=== PATIENT | female | born 1985 | race Caucasian/White ===

== ENCOUNTER 2016-04-07 08:25 | Emergency (ER) | payer BC ==
[2016-04-07 08:59] VITALS: BP 112/71
--- NOTE | 2016-04-07 09:08 | UC ---
Complaint Female HPI - HPI Summary HPI Summary: complaint of burning with urination increased urgency and frequency of urination for 2 days slight suprapubic pain when urination strong odor to urine denies fever and back pain took some Azo yesterday hx of UTI 1 .5 months ago- never completed course of keflex for infection - History Of Current Complaint Chief Complaint: UCGU Stated Complaint: URINARY ISSUE Time Seen by Provider: 04/07/16 09:00 Hx Obtained From: Patient Hx Last Menstrual Period: IUD - Allergies/Home Medications Allergies/Adverse Reactions: Allergies Allergy/AdvReac Type Severity Reaction Status Date / Time No Known Allergies Allergy Verified 04/07/16 08:57 PMH/Surg Hx/FS Hx/Imm Hx Previously Healthy: Yes Endocrine History Of: Denies: Diabetes, Thyroid Disease Cardiovascular History Of: Denies: Cardiac Disorders, Hypertension Respiratory History Of: Denies: COPD, Asthma GI/ History Of: Reports: Gastroesophageal Reflux Denies: Ulcer - Surgical History Surgical History: Yes Surgery Procedure, Year, and Place: cholecystectomy 2009 - Family History Known Family History: Negative: Cardiac Disease, Hypertension, Diabetes, Renal Disease - Social History Occupation: Employed Full-time Lives: With Family Alcohol Use: Occasionally Substance Use Type: None Smoking Status (MU): Light Every Day Tobacco Smoker Amount Used/How Often: 1/2ppd Cessation Counseling: Patient Advised to Stop Review of Systems Constitutional: Negative Skin: Negative Eyes: Negative ENT: Negative Respiratory: Negative Cardiovascular: Negative Gastrointestinal: Negative Genitourinary: Dysuria, Frequency, Urgency Motor: Negative Neurovascular: Negative Musculoskeletal: Negative Neurological: Negative Psychological: Negative All Other Systems Reviewed And Are Negative: Yes Physical Exam Triage Information Reviewed: Yes Appearance: No Pain Distress, Well-Nourished Vital Signs: Initial Vital Signs Temp 98.6 F 04/07/16 08:52 Pulse 71 04/07/16 08:52 Resp 28 04/07/16 08:52 BP 112/71 04/07/16 08:52 Pulse Ox 100 04/07/16 08:52 Vital Signs Reviewed: Yes Eyes: Positive: Conjunctiva Clear ENT: Positive: Normal ENT inspection Neck: Positive: No Lymphadenopathy Respiratory: Positive: Lungs clear, Normal breath sounds, No respiratory distress Cardiovascular: Positive: RRR, No Murmur, Pulses Normal Abdomen Description: Positive: Nontender, No Organomegaly, Soft. Negative: CVA Tenderness (R), CVA Tenderness (L), Distended, Guarding Bowel Sounds: Positive: Present Musculoskeletal: Positive: No Edema Neurological: Positive: Alert Psychological Exam: Normal Skin Exam: Normal Complaint Female Dx - Course Course Of Treatment: exam completed. will treat for UTi with bactrim -last UTI treated with kelfex. followup with PCP - Differential Dx/Diagnosis Differential Diagnosis/HQI/PQRI: Urinary Tract Infection Provider Diagnoses: UTI Discharge - Discharge Plan Condition: Stable Disposition: HOME Prescriptions: Phenazopyridine TAB* [Pyridium TAB*] 100 mg PO TID #6 tab Sulfamethox/Trimethoprim DS* [Bactrim DS 800/160 TAB*] 1 tab PO BID #14 tab Patient Education Materials: Urinary Tract Infection in Women (ED) Referrals: Betty Mejia NP [Primary Care Provider] - Additional Instructions: Please take antibiotic as directed. Increase fluids and rest Take acetaminophen or ibuprofen for fever or pain Please review your discharge instructions. If your symptoms do not improve please call your primary care provider or return to urgent care.
== END 2016-04-07 09:25 | disposition home or self-care (01) ==
LOC: UCEAST 08:25
DX: N39.0 Urinary tract infection, site not specified (principal); F17.210 Nicotine dependence, cigarettes, uncomplicated
CPT/HCPCS: 81002; 87077; 87086; 87186; 99212; G0463

== ENCOUNTER 2017-09-05 09:43 | Emergency (ER) | payer BC ==
[2017-09-05 10:41] VITALS: BP 119/73
--- NOTE | 2017-09-05 10:59 | UC ---
Complaint Female HPI - HPI Summary HPI Summary: Pain and burning with urination - History Of Current Complaint Chief Complaint: UCGU Stated Complaint: URINARY COMPLAINT Time Seen by Provider: 09/05/17 10:35 Hx Obtained From: Patient Hx Last Menstrual Period: IUD ?: No Onset/Duration: Sudden Onset, Lasting Days - 1, Still Present Timing: Constant Pain Intensity: 3 Pain Scale Used: 0-10 Numeric Character: Burning Aggravating Factor(s): Urination Alleviating Factor(s): Nothing - Allergies/Home Medications Allergies/Adverse Reactions: Allergies Allergy/AdvReac Type Severity Reaction Status Date / Time sulfamethoxazole Allergy Rash Verified 09/05/17 10:41 [From Bactrim] trimethoprim [From Bactrim] Allergy Rash Verified 09/05/17 10:41 Home Medications: Home Medications Pumpkin Seed Extract/Soy Germ [Azo Bladder Control Capsule] 1 cap PO 09/05/17 [ History] PMH/Surg Hx/FS Hx/Imm Hx Previously Healthy: Yes - Surgical History Surgical History: Yes Surgery Procedure, Year, and Place: cholecystectomy 2009 - Family History Known Family History: Negative: Cardiac Disease, Hypertension, Diabetes, Renal Disease - Social History Occupation: Employed Full-time Lives: With Family Alcohol Use: Occasionally Substance Use Type: None Smoking Status (MU): Former Smoker Amount Used/How Often: 1/2ppd Review of Systems Constitutional: Negative Skin: Negative Eyes: Negative ENT: Negative Respiratory: Negative Cardiovascular: Negative Gastrointestinal: Negative Genitourinary: Dysuria, Frequency, Urgency Motor: Negative Neurovascular: Negative Musculoskeletal: Negative Neurological: Negative Psychological: Negative Is Patient Immunocompromised?: No All Other Systems Reviewed And Are Negative: Yes Physical Exam Triage Information Reviewed: Yes Appearance: Well-Appearing, No Pain Distress, Well-Nourished Vital Signs: Initial Vital Signs Temp 97.8 F 09/05/17 10:38 Pulse 101 09/05/17 10:38 Resp 18 09/05/17 10:38 BP 119/73 09/05/17 10:38 Pulse Ox 98 09/05/17 10:38 Vital Signs Reviewed: Yes Eye Exam: Normal Eyes: Positive: Conjunctiva Clear ENT Exam: Normal ENT: Positive: Normal ENT inspection, Hearing grossly normal. Negative: Trismus , Muffled voice, Hoarse voice Dental Exam: Normal Neck exam: Normal Neck: Positive: Supple, Nontender Respiratory Exam: Normal Respiratory: Positive: Chest non-tender, No respiratory distress, No accessory muscle use Cardiovascular Exam: Normal Cardiovascular: Positive: RRR, Pulses Normal, Brisk Capillary Refill Abdominal Exam: Normal Abdomen Description: Positive: Nontender, No Organomegaly, Soft. Negative: CVA Tenderness (R), CVA Tenderness (L), McBurney's Point Tenderness Bowel Sounds: Positive: Present Musculoskeletal Exam: Normal Musculoskeletal: Positive: Strength Intact, ROM Intact, No Edema Neurological Exam: Normal Neurological: Positive: Alert, Muscle Tone Normal Psychological Exam: Normal Skin Exam: Normal Diagnostics - Laboratory Diagnostic Studies Completed/Ordered: ua +3 blood and leukoesterace Complaint Female Dx - Course Course Of Treatment: increase fluids, tylenol, ibuprofen, AZO, macrobid, culture urine follow with pcp prn - Differential Dx/Diagnosis Provider Diagnoses: UTI Discharge - Sign-Out/Discharge Documenting (check all that apply): Discharge/Admit/Transfer - Discharge Plan Condition: Stable Disposition: HOME Prescriptions: Nitrofurantoin Monohyd/M-Cryst [Macrobid 100 mg Capsule] 100 mg PO BID #10 cap Phenazopyridine TAB* [Pyridium 100 mg TAB*] 100 mg PO TID PRN #9 tab PRN Reason: urinary pain/burning Patient Education Materials: Phenazopyridine (By mouth), Urinary Tract Infection in Women (ED) Referrals: Betty Mejia NP [Primary Care Provider] - If Needed - Billing Disposition and Condition Condition: STABLE Disposition: HOME
== END 2017-09-05 11:09 | disposition home or self-care (01) ==
LOC: UCEAST 09:43
DX: N39.0 Urinary tract infection, site not specified (principal); Z88.2 Allergy status to sulfonamides; Z90.49 Acquired absence of other specified parts of digestive tract; Z87.891 Personal history of nicotine dependence
CPT/HCPCS: 81003; 84702; 87077; 87086; 87186; 99212; G0463

== ENCOUNTER 2017-10-17 13:13 | Emergency (ER) | payer BC ==
[2017-10-17] MEDS ORDERED: Naproxen TAB* 250 MG PO ONE (13:56)
[2017-10-17] MEDS ORDERED: Nitrofurantoin Macrocrystals* 100 MG CAP PO ONE (13:56)
--- NOTE | 2017-10-17 13:56 | ED ---
GI/ HPI - HPI Summary HPI Summary: This patient is a 32 year old F who was already in [facility] with her when she noticed she had bloody urine. Pt reports that she had a UTI three weeks ago but didnt finish the antibiotics. The patient rates the pain 4/10 in severity. Patient reports hematuria. Patient denies back pain. No SHx of smoking. 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 - History of Current Complaint Chief Complaint: EDUrogenitalProblems Time Seen by Provider: 10/17/17 13:35 Stated Complaint: POSS UTI Hx Obtained From: Patient Hx Last Menstrual Period: IUD Onset/Duration: Started Hours Ago Timing: Constant Severity: Moderate Current Severity: Moderate Vaginal Bleeding Description: Brownish-Red Pain Intensity: 4 Location of Pain: Groin Associated Signs and Symptoms: Positive: Hematuria, Dysuria. Negative: Back Pain - Allergy/Home Medications Allergies/Adverse Reactions: Allergies Allergy/AdvReac Type Severity Reaction Status Date / Time sulfamethoxazole Allergy Rash Verified 10/17/17 13:21 [From Bactrim] trimethoprim [From Bactrim] Allergy Rash Verified 10/17/17 13:21 PMH/Surg Hx/FS Hx/Imm Hx Endocrine/Hematology History: Denies: Hx Diabetes, Hx Thyroid Disease Cardiovascular History: Denies: Hx Hypertension Respiratory History: Denies: Hx Asthma, Hx Chronic Obstructive Pulmonary Disease (COPD) GI History: Denies: Hx Ulcer EENT History: Denies: Hx Deafness - Surgical History Surgery Procedure, Year, and Place: cholecystectomy 2009 Infectious Disease History: No Infectious Disease History: Denies: Hx Clostridium Difficile, Hx Hepatitis, Hx Human Immunodeficiency Virus (HIV), Hx of Known/Suspected MRSA, Hx Shingles, Hx Tuberculosis, Hx Known/ Suspected VRE, Hx Known/Suspected VRSA, History Other Infectious Disease, Traveled Outside the [place] in Last 30 Days - Family History Known Family History: Negative: Cardiac Disease, Hypertension, Diabetes, Renal Disease - Social History Alcohol Use: Occasionally Substance Use Type: Reports: None Smoking Status (MU): Former Smoker Amount Used/How Often: 1/2ppd Review of Systems Positive: dysuria, hematuria Negative: Other - back pain All Other Systems Reviewed And Are Negative: Yes Physical Exam - Summary Physical Exam Summary: Appearance: Well appearing, no pain distress Skin: warm, dry, reflects adequate perfusion Head/face: normal Eyes: EOMI, MAIKEL ENT: normal Neck: supple, non-tender Respiratory: CTA, breath sounds present Cardiovascular: RRR, pulses symmetrical Abdomen: non-tender, soft Bowel Sounds: present Musculoskeletal: normal, strength/ROM intact. No CVA tenderness. Neuro: normal, sensory motor intact, A&Ox3 Triage Information Reviewed: Yes Vital Signs On Initial Exam: Initial Vitals Temp Pulse Resp BP Pulse Ox 98.2 F 78 18 127/76 100 10/17/17 13:18 10/17/17 13:18 10/17/17 13:18 10/17/17 13:18 10/17/17 13:18 Vital Signs Reviewed: Yes Diagnostics - Vital Signs Vital Signs Temp Pulse Resp BP Pulse Ox 10/17/17 13:23 97.9 F 83 18 113/80 98 10/17/17 13:18 98.2 F 78 18 127/76 100 - Laboratory Lab Statement: Any lab studies that have been ordered have been reviewed, and results considered in the medical decision making process. Re-Evaluation - Re-Evaluation First Eval Re-Evaluation Time: 15:00 Change: Improved Comment: Pt is feeling better. GIGU Course/Dx - Course Course Of Treatment: Patient with a history of frequent UTIs who felt like she might be getting a UTI and had abrupt onset of discomfort in her bladder area. She did pass some dark colored urine which seem to clear. She is feeling better now after medications. She'll be started on antibiotics. She has no flank pain or colicky pain consistent with stone. She'll follow-up with her family doctor. - Diagnoses Differential Diagnoses - Female: Renal Colic, Urinary Tract Infection Provider Diagnoses: Acute cystitis with hematuria Discharge - Sign-Out/Discharge Documenting (check all that apply): Patient Departure - Discharge - Discharge Plan Condition: Improved Disposition: HOME Prescriptions: Nitrofurantoin Macrocrystal [Nitrofurantoin] 100 mg PO BID #14 capsule Phenazopyridine 200 mg (NF) [Pyridium 200 MG tab *] 200 mg PO TID #9 tab Patient Education Materials: Urinary Tract Infection in Women (DC) Referrals: Betty Mejia NP [Primary Care Provider] - Additional Instructions: Stay well-hydrated. Cranberry juice may help. Tylenol, ibuprofen as needed for pain. Return with back pain, fever, vomiting, worse or other concerns as discussed. - Billing Disposition and Condition Condition: IMPROVED Disposition: Home
[2017-10-17] MEDS ORDERED: Phenazopyridine TAB* 100 MG PO ONE (14:00)
[2017-10-17] MEDS ORDERED: Phenazopyridine 200 mg (NF) 200 MG TAB PO ONE (14:00)
[2017-10-17] MEDS ORDERED: Phenazopyridine TAB* 100 MG ONE (14:04)
[2017-10-17 15:05] LABS: Urine Appearance Cloudy; Urine Blood 3+ (Negative); Urine Color Yellow; Urine Ketones 1+ (Negative); Urine Protein 1+(30 mg/dL) (Negative); Urine Red Blood Cell 3+(>10/hpf) (Absent); Urine Specific Gravity 1.005 (1.010-1.030); Urine Urobilinogen Negative (Negative); Urine White Blood Cell 3+(>20/hpf) (Absent)
[2017-10-17 15:21] VITALS: BP 121/74
== END 2017-10-17 15:20 | disposition home or self-care (01) ==
LOC: ED 13:13
DX: N30.01 Acute cystitis with hematuria (principal); L53.8 Other specified erythematous conditions; Z87.440 Personal history of urinary (tract) infections; Z87.891 Personal history of nicotine dependence; Z88.2 Allergy status to sulfonamides
CPT/HCPCS: 81003; 81015; 87086; 99282; A9270-GY

== ENCOUNTER 2018-04-26 16:57 | Emergency (ER) | payer BC ==
[2018-04-26 17:15] VITALS: BP 114/73
--- NOTE | 2018-04-26 18:02 | UC ---
Respiratory Complaint HPI - HPI Summary HPI Summary: PT HAS HAD SINUS SX FOR OVER A MONTH. THOUGH SHE WAS GETTING BETTER BUT THEN AFTER A FEW DAYS SX GOT WORSE. HAS HEADACHE, SINUS PRESSURE. PND, MILD COUGH AND CONGESTION. SUBJECTIVE LOW GRADE FEVER LAST NIGHT. - History of Current Complaint Chief Complaint: UCRespiratory Stated Complaint: CONGESTED Time Seen by Provider: 04/26/18 17:35 Hx Obtained From: Patient Hx Last Menstrual Period: iud Onset/Duration: Gradual Onset, Lasting Weeks, Still Present Timing: Constant Severity Initially: Moderate Severity Currently: Moderate Pain Intensity: 0 Pain Scale Used: 0-10 Numeric Character: Cough: Nonproductive Aggravating Factors: Nothing Alleviating Factors: Nothing Associated Signs And Symptoms: Positive: Fever, URI, Nasal Congestion, Sinus Discomfort. Negative: Wheezing - Allergies/Home Medications Allergies/Adverse Reactions: Allergies Allergy/AdvReac Type Severity Reaction Status Date / Time sulfamethoxazole Allergy Rash Verified 04/26/18 17:15 [From Bactrim] trimethoprim [From Bactrim] Allergy Rash Verified 04/26/18 17:15 Home Medications: Home Medications Multivitamin [Multivitamins] 1 cap PO 04/26/18 [History] Vit C/Ascorb Sod/Multivit-Min [Emergen-C 500 mg Chewable Tab] 2 chw PO 04/26/18 [History] PMH/Surg Hx/FS Hx/Imm Hx Previously Healthy: Yes - Surgical History Surgical History: Yes Surgery Procedure, Year, and Place: cholecystectomy 2009 - Family History Known Family History: Negative: Cardiac Disease, Hypertension, Diabetes, Renal Disease - Social History Alcohol Use: Occasionally Substance Use Type: None Smoking Status (MU): Current Some Day Smoker Type: Cigarettes Amount Used/How Often: 1/2ppd Review of Systems All Other Systems Reviewed And Are Negative: Yes Constitutional: Positive: Fever ENT: Positive: Nasal Discharge, Sinus Congestion Respiratory: Positive: Cough Cardiovascular: Positive: Negative Gastrointestinal: Positive: Negative Neurological: Positive: Headache Physical Exam Triage Information Reviewed: Yes Appearance: Well-Appearing, No Pain Distress, Well-Nourished Vital Signs: Initial Vital Signs Temp 98.4 F 04/26/18 17:08 Pulse 83 04/26/18 17:08 Resp 18 04/26/18 17:08 BP 114/73 04/26/18 17:08 Pulse Ox 100 04/26/18 17:08 Vital Signs Reviewed: Yes Eyes: Positive: Conjunctiva Clear ENT: Positive: Hearing grossly normal, Pharynx normal, TMs normal Neck: Positive: Supple, Nontender, No Lymphadenopathy Respiratory Exam: Normal Cardiovascular Exam: Normal Abdomen Description: Positive: Soft Musculoskeletal: Positive: No Edema Neurological: Positive: Alert Psychological: Positive: Age Appropriate Behavior Skin: Negative: Rashes UC Diagnostic Evaluation - Laboratory O2 Sat by Pulse Oximetry: 100 Respiratory Course/Dx - Differential Dx/Diagnosis Provider Diagnosis: Acute rhinosinusitis Discharge - Sign-Out/Discharge Documenting (check all that apply): Patient Departure All imaging exams completed and their final reports reviewed: No Studies - Discharge Plan Condition: Stable Disposition: HOME Prescriptions: Amoxicillin/Clavulanate TAB* [Augmentin TAB 875*] 875 mg PO BID #20 tab Patient Education Materials: Rhinosinusitis (ED) Referrals: Betty Mejia NP [Primary Care Provider] - If Needed Additional Instructions: YOUR SYMPTOMS MAY BE VIRALLY MEDIATED BUT GIVEN THE LENGTH OF TIME YOU HAVE BEEN ILL WE WILL COVER YOU WITH ANTIBIOTICS. IF YOU START THE MEDICINE BE SURE TO TAKE IT FOR THE FULL COURSE. REST, HYDRATE, OTC MEDS NEEDED. SEEK FOLLOW- UP WITH YOUR PCP IF YOU ARE NOT IMPROVING OVER THE NEXT 1-2 WEEKS. USE OTC AFRIN FOR NASAL CONGESTION. 2 SPRAYS IN EACH NOSTRIL AT NIGHT BEFORE BED. DO NOT USE FOR MORE THAN 4-5 DAYS IN A ROW TO PREVENT DEVELOPING REBOUND CONGESTION. IBUPROFEN MAX DOSE: 600MG (3 TABS) EVERY 6 HRS OR 800MG (4 TABS) EVERY 8 HRS OR NAPROXEN MAX DOSE: 440MG (2 TABS) EVERY 12 HRS - Billing Disposition and Condition Condition: STABLE Disposition: Home
== END 2018-04-26 17:55 | disposition home or self-care (01) ==
LOC: UCEAST 16:57
DX: J01.90 Acute sinusitis, unspecified (principal); Z88.2 Allergy status to sulfonamides; Z72.0 Tobacco use
CPT/HCPCS: 99212; G0463

== ENCOUNTER 2018-12-14 09:19 | Emergency (ER) | payer BC ==
[2018-12-14 09:29] VITALS: BP 118/75
--- NOTE | 2018-12-14 10:21 | UC ---
UC General HPI - HPI Summary HPI Summary: pt states she had a scratchy throat 2 days ago that has resolved but moved to her head with congestion that is green and chest. no cp or sob. hx asthma as child. subjective fever. - History of Current Complaint Chief Complaint: UCGeneralIllness Stated Complaint: COUGH,FEVER Time Seen by Provider: 12/14/18 10:13 Hx Obtained From: Patient Hx Last Menstrual Period: mirena Onset/Duration: Gradual Onset Timing: Constant Pain Intensity: 0 Associated Signs & Symptoms: Negative: Headache - Allergy/Home Medications Allergies/Adverse Reactions: Allergies Allergy/AdvReac Type Severity Reaction Status Date / Time sulfamethoxazole Allergy Rash Verified 12/14/18 09:26 [From Bactrim] trimethoprim [From Bactrim] Allergy Rash Verified 12/14/18 09:26 Home Medications: Home Medications Ibuprofen TAB* [Motrin TAB* 400 MG] 400 mg PO Q6H PRN 12/14/18 [History Confirmed 12/14/18] PMH/Surg Hx/FS Hx/Imm Hx Respiratory History: Asthma - childhood - Surgical History Surgical History: Yes Surgery Procedure, Year, and Place: cholecystectomy 2009 - Family History Known Family History: Positive: Non-Contributory Negative: Cardiac Disease, Hypertension, Diabetes, Renal Disease - Social History Alcohol Use: Occasionally Substance Use Type: None Smoking Status (MU): Current Some Day Smoker Type: Cigarettes Amount Used/How Often: socially Review of Systems All Other Systems Reviewed And Are Negative: No Constitutional: Positive: Fever. Negative: Chills Eyes: Negative: Eye Redness ENT: Positive: Sinus Congestion. Negative: Ear Ache Respiratory: Positive: Cough. Negative: Shortness Of Breath Cardiovascular: Negative: Palpitations, Chest Pain Neurological: Negative: Headache Physical Exam Triage Information Reviewed: Yes Appearance: Well-Appearing Vital Signs: Initial Vital Signs Temp 98.3 F 12/14/18 09:27 Pulse 88 12/14/18 09:27 Resp 18 12/14/18 09:27 BP 118/75 12/14/18 09:27 Pulse Ox 100 12/14/18 09:27 Vital Signs Reviewed: Yes Eyes: Positive: Conjunctiva Clear ENT: Positive: Pharynx normal, Nasal congestion, Nasal drainage - clear, TMs normal Neck: Positive: Supple, Nontender, No Lymphadenopathy Respiratory: Positive: Lungs clear, No accessory muscle use, Decreased breath sounds - slight. Negative: Crackles, Rhonchi, Wheezing Cardiovascular: Positive: RRR, No Murmur Abdomen Description: Positive: Nontender Neurological: Positive: Alert Psychological: Positive: Age Appropriate Behavior Skin Exam: Normal Course/Dx - Differential Dx - Multi-Symptom Differential Diagnoses: Other - no concern for pneumonia. antibiotic not indicated. - Diagnoses Provider Diagnosis: URI (upper respiratory infection), Bronchitis Discharge ED - Sign-Out/Discharge Documenting (check all that apply): Patient Departure All imaging exams completed and their final reports reviewed: No Studies - Discharge Plan Condition: Stable Disposition: HOME Prescriptions: Albuterol HFA INHALER* [Ventolin HFA Inhaler*] 2 puff INH Q6H 7 Days #1 mdi predniSONE [Prednisone 20 MG TAB] 40 mg PO DAILY 5 Days #10 tablet Patient Education Materials: Upper Respiratory Infection (DC), Acute Bronchitis (ED) Referrals: Betty Mejia NP [Primary Care Provider] - Additional Instructions: FOLLOW UP IF NOT BETTER IN 5-7 DAYS OR SOONER IF WORSE - Billing Disposition and Condition Condition: STABLE Disposition: Home
== END 2018-12-14 10:29 | disposition home or self-care (01) ==
LOC: UCCORT 09:19
DX: J06.9 Acute upper respiratory infection, unspecified (principal); J40 Bronchitis, not specified as acute or chronic; Z88.2 Allergy status to sulfonamides; Z72.0 Tobacco use
CPT/HCPCS: 99212; G0463